=== PATIENT | female | born 1975 | race Two or more races ===

== ENCOUNTER 2024-09-13 11:16 | Emergency (ER) | payer OTHER ==
[~2024-09-13] VITALS: Ht 157.5 cm; Wt 72.6 kg
[2024-09-13] MEDS ORDERED: 0.9 % SODIUM CHLORIDE 1,000 ML IV STA (13:20)
[2024-09-13] MEDS ORDERED: CIPROFLOXACIN IN 5 % DEXTROSE 400 MG/200 ML PIGGYBAG IV STA (13:21)
[2024-09-13] MEDS ORDERED: METRONIDAZOLE/SODIUM CHLORIDE 500 MG/100 ML PIGGYBACK IV STA (13:21)
[2024-09-13 13:44] LABS: BASO % 0.3 % (0.1-1.2); EOS # 0.09 (0.04-0.54); EOS % 1.0 % (0.7-7.0); LYMPH # 2.73 (1.18-3.74); LYMPH % 30.5 % (19.3-53.1); MEAN PLATELET VOLUME 9.50 fl (9.4-12.4); MONO # 0.62 (0.24-0.82); MONO % 6.9 % (4.7-12.5); NEUT # 5.48 (1.56-6.13); NEUT % 61.2 % (34.0-71.1); RED CELL DISTRIBUTION WIDTH 14.1 % (11.6-14.4)
[2024-09-13 14:19] LABS: BUN CREA RATIO 16 (7.0-25.0); CREATININE SERUM 0.56 mg/dL (0.55-1.02); GFR 115.06; GLUCOSE FASTING 89 mg/dL (65-100); OSMOLALITY SERUM 278 MOSM/KG (275-295)
[2024-09-13 15:37] LABS: URINE APPEARANCE Clear; URINE BILIRRUBIN Negative (NEGATIVE); URINE BLOOD Negative; URINE COLOR Yellow; URINE GLUCOSE Negative (NEGATIVE); URINE KETONE Negative (NEGATIVE); URINE LEUKOCYTE Moderate; URINE NITRATE Negative; URINE PROTEIN Negative (NEGATIVE); URINE UROBILINOGEN 0.2 E.U./dl
[2024-09-13 15:40] LABS: URINE BACTERIA 4776.8 uL (0.0-1933); URINE EPITHELIAL CELLS 25.2 uL (0.0-38.8); URINE RBC 6.7 uL (0.0-20.8); URINE WBC 53.9 uL (0.0-23.2)
[2024-09-13 15:44] LABS: URINE CAST 0.43 uL (0.0-1.40)
== END 2024-09-13 19:07 | disposition home or self-care (01) ==
LOC: ER 11:16
PROVIDERS: Emergency Medicine
DX: K59.01 Slow transit constipation (principal); K57.32 Diverticulitis of large intestine without perforation or abscess without bleeding; D25.9 Leiomyoma of uterus, unspecified
CPT/HCPCS: 36415; 74177; Q9965